=== PATIENT | male | born 1950 | race Two or more races ===

== ENCOUNTER 2020-06-20 15:14 | Outpatient (CLI) | payer OTHER | END 2020-06-20 15:20 | disposition home or self-care (01) | LOC: RAD 15:14 | PROVIDERS: ATTEND Orthopaedic Surgery | DX: M54.5 Low back pain (principal) ==

== ENCOUNTER 2020-07-02 11:01 | Outpatient (CLI) | payer OTHER | END 2020-07-02 11:15 | disposition home or self-care (01) | LOC: RAD 11:01 | PROVIDERS: ATTEND Orthopaedic Surgery | DX: M25.551 Pain in right hip (principal); M25.552 Pain in left hip ==

== ENCOUNTER 2020-07-25 16:16 | Outpatient (CLI) | payer OTHER | END 2020-07-25 16:21 | disposition home or self-care (01) | LOC: RAD 16:16 | PROVIDERS: ATTEND Orthopaedic Surgery | DX: M25.511 Pain in right shoulder (principal); M25.512 Pain in left shoulder; M25.562 Pain in left knee ==

== ENCOUNTER 2020-08-23 09:27 | Outpatient (CLI) | payer OTHER ==
[2020-08-23] MEDS ORDERED: LEVOTHYROXINE25 MCG PO (12:10)
[2020-08-23] MEDS ORDERED: NORVASC10 MG PO (12:11)
[2020-08-23] MEDS ORDERED: TAMS0.4C PO (12:12)
[2020-08-23] MEDS ORDERED: ECOTRIN81 MG PO (12:12)
[2020-08-23] MEDS ORDERED: SIMVASTATIN5 MG PO (12:12)
[2020-08-23] MEDS ORDERED: OMEPRAZOLE20 MG PO (12:12)
[2020-08-23] MEDS ORDERED: TRANXENE T-TAB7.5 MG PO (12:13)
[2020-08-23] MEDS ORDERED: ZOLOFT25 MG PO (12:13)
== END 2020-08-23 15:00 | disposition home or self-care (01) ==
LOC: LAB 09:27
PROVIDERS: ATTEND Orthopaedic Surgery
DX: U07.1 COVID-19 (principal); D68.8 Other specified coagulation defects; N39.0 Urinary tract infection, site not specified; D64.89 Other specified anemias; E88.89 Other specified metabolic disorders; Z22.322 Carrier or suspected carrier of Methicillin resistant Staphylococcus aureus; Z76.89 Persons encountering health services in other specified circumstances; I49.8 Other specified cardiac arrhythmias; I10 Essential (primary) hypertension

== ENCOUNTER 2021-03-06 16:21 | Outpatient (CLI) | payer OTHER ==
[~2021-03-06 16:21] MED LIST: ECOTRIN81 MG PO; LEVOTHYROXINE25 MCG PO; NORVASC10 MG PO; OMEPRAZOLE20 MG PO; SIMVASTATIN5 MG PO; TAMS0.4C PO; TRANXENE T-TAB7.5 MG PO; ZOLOFT25 MG PO
== END 2021-03-06 16:32 | disposition home or self-care (01) ==
LOC: RAD 16:21
PROVIDERS: ATTEND Orthopaedic Surgery
DX: M25.562 Pain in left knee (principal); R93.6 Abnormal findings on diagnostic imaging of limbs; Z96.652 Presence of left artificial knee joint